=== PATIENT | male | born 1975 | race Caucasian/White ===

== ENCOUNTER → 2024-10-08 | Outpatient (CLI) | payer OTHER ==
[2024-10-08 10:09] LABS: Partial Thromboplastin Time 23.7 sec (22.0-30.0); Prothrombin Time 10.9 sec (10.0-12.5)
[2024-10-08 15:19] LABS: HCT 45.5 % (39.6-50.0); HGB 15.3 g/dL (13.0-17.0); MCH 31.9 pg (27.0-32.0); MCHC 33.6 g/dL (32.0-37.0); MCV 94.8 FL (80.0-97.0); Mean Platelet Volume 11.4 FL (9.5-12.2); NRBC Per 100 WBC 0 X 10*3/uL (0.00-0.01); Platelet Count 165 X 10*3/uL (140-440); WBC 6.49 X 10*3/uL (4.50-10.00)
[2024-10-08 17:02] LABS: ALT 62 U/L (10-49); AST 56 U/L (14-35); Albumin 4.4 g/dL (3.8-4.9); Albumin/Globulin Ratio 1.91 Ratio (1.60-3.17); Alkaline Phosphatase 96 U/L (41-126); BUN/Creat Ratio 14.75 Ratio (12.00-20.00); Blood Urea Nitrogen 11.8 mg/dL (9.0-27.0); Carbon Dioxide 24.3 mmol/L (21.6-31.8); Chloride 104 mmol/L (96-109); Globulin 2.3 g/dL (1.6-3.3); Glucose 113 mg/dL (70-110); Potassium 4.1 mmol/L (3.5-5.5); Sodium 139 mmol/L (135-145); Total Bilirubin 0.8 mg/dL (0.3-1.2); Total Protein 6.7 g/dL (6.2-8.2)
== END | disposition home or self-care (01) ==
LOC: LABPAT 09:03
PROVIDERS: ATTEND Orthopaedic Surgery
DX: Z01.818 Encounter for other preprocedural examination (principal); Z22.322 Carrier or suspected carrier of Methicillin resistant Staphylococcus aureus; M16.12 Unilateral primary osteoarthritis, left hip
CPT/HCPCS: 80053; 85027; 85610; 85730; 86850; 86900; 86901; 87070; 93005

== ENCOUNTER 2024-11-05 05:37 | Day surgery (SDC) | payer OTHER ==
[2024-10-31 10:19] VITALS: BMI 30.5
[~2024-11-05 05:37] MED LIST: TRANEXAMIC 1,000 MG/100ML-NACL 1,000 MG in SALINE 1 100ML.BAG IVPB PRN
[2024-11-05] MEDS: IV FLUID CONTINUATION 1,000 ML IV ONE (05:50)
[2024-11-05] MEDS: LACTATED RINGERS 1,000 ML IV SCH (06:17)
[2024-11-05] MEDS: DEXAMETHASONE SOD PHOSPHATE 4 MG/ML 1 ML VIAL IV ONE (06:23)
[2024-11-05] MEDS: ONDANSETRON 4 MG/2 ML VIAL IVP ONE (06:23)
[2024-11-05] MEDS: ACETAMINOPHEN TAB 500 MG TAB PO PRN (06:24)
[2024-11-05] MEDS: MELOXICAM 7.5 MG TAB PO PRN (06:24)
[2024-11-05] MEDS: GABAPENTIN 300 MG CAP PO PRN (06:24)
[2024-11-05] MEDS: fentaNYL (PF) 50 MCG/ML 2 ML AMP IVP ONE (06:39)
[2024-11-05] MEDS: MIDAZOLAM 2 MG/2 ML VIAL IV ONE (06:39)
[2024-11-05] MEDS ORDERED: DEXAMETHASONE SOD PHOSPHATE 4 MG/ML 1 ML VIAL ONE (06:54)
[2024-11-05] MEDS ORDERED: ROCURONIUM 10 MG/ML (5 ML VIAL) IV ONE (06:54)
[2024-11-05] MEDS ORDERED: fentaNYL (PF) 50 MCG/ML 2 ML AMP ONE (06:54)
[2024-11-05] MEDS ORDERED: ROPIVACAINE 5 MG/ML 30 ML VIAL ONE (06:54)
[2024-11-05] MEDS ORDERED: GLYCOPYRROLATE 0.2 MG/ML 2 ML VIAL ONE (06:54)
[2024-11-05] MEDS ORDERED: PROPOFOL 10 MG/ML 20 ML VIAL IV ONE (06:54)
[2024-11-05] MEDS ORDERED: NEOSTIGMINE 1 MG/ML 10 ML VIAL ONE (06:54)
[2024-11-05] MEDS ORDERED: HYDROmorphone (PF) 1 MG/ML ONE (06:54)
[2024-11-05] MEDS ORDERED: TRANEXAMIC 1,000 MG/100ML-NACL PREMIX BAG ONE (06:54)
[2024-11-05] MEDS ORDERED: LIDOCAINE 1% INJ 10MG/ML (20 ML MDV) ONE (06:54)
[2024-11-05] MEDS ORDERED: SUCCINYLCHOLINE CHLORIDE 200 MG/10 ML VIAL IV ONE (06:54)
[2024-11-05] MEDS: ceFAZolin 1,000 MG in SODIUM CHLORIDE 0.9% 1,000 ML IRRIGATION ONE (06:59)
[2024-11-05] MEDS: ROPIVACAINE 5 MG/ML 30 ML VIAL MISCELLANE ONE ×2 (07:28→08:08)
--- NOTE | 2024-11-05 07:51 | P.ANPRN ---
Procedure Note - Anesthesia - Nerve Block Performed Left Sam Single Time Out Performed: Yes Date of Procedure: 11/05/24 Procedure Start Time: 06:38 Procedure Stop Time: 06:46 Location of Patient: PreOp Indication: Acute Post-Operative Pain, Requested by Surgeon Sedation Type: Sedate with meaningful contact maintained Preparation: Sterile Prep Position: Supine Needle Types: Pajunk Needle Gauge: 21 Ultrasound used to visualize needle placement: Yes Ultrasound used to observe medication spread: Yes Injectate: 0.5% Ropivacaine (see comment for volume) (20 ml + 10 ml NS + 4 mg Dexamethasone) Blood Aspirated: No Pain Paresthesia on Injection Noted: No Resistance on Injection: Normal Image Stored and Saved: Yes Events: Uneventful and Well Tolerated
--- NOTE | 2024-11-05 08:11 | P.OP ---
Date of Procedure: 11/05/24 Preoperative Diagnosis: Severe osteoarthritis left hip Postoperative Diagnosis: Severe osteoarthritis left hip Procedure(s) Performed: Left total hip arthroplasty with a direct anterior approach Implants: [employer] Polarstem standard size 3 with a collar [employer] R3, 3 hole hemispherical acetabular shell, 56 mm [employer] Reflection 6.5 mm cancellus screws, 20 mm, 25 mm [employer] R3, XLPE 20 acetabular liner [employer] Oxinium femoral head 36 mm, +0 All components were press-fit. The articulation is Oxinium on polyethylene. Anesthesia: GETA Surgeon: Mak Suarez [employer] Manager #1: Rosa Contreras Estimated Blood Loss (ml): 400 Pathology: none sent Condition: stable Disposition: PACU Indications for Procedure: After failure of conservative treatment we discussed the surgical and nonsu rgical treatment options at length. Patient wishes to proceed with a total hip arthroplasty with a direct anterior approach. Complications specific to this procedure were discussed at length, including but not limited to infection, leg length discrepancy, dislocation, nerve injury, and fracture. Covid-19 was also discussed at length with the patient, and they are aware of the current policies and procedures. The patient was given the option of delaying surgery, but they elect to proceed knowing these risks. Patient is aware of all these complications and informed consent was obtained Operative Findings: The operative findings are consistent with severe osteoarthritis of the left hip Description of Procedure: The patient was seen and evaluated in the preoperative area and the consent was reviewed. The operative site was marked with a skin marker. The patient verified the procedure and operative site. A BRITTANI block was placed by anesthesia in the preoperative area. The patient was then brought to the operating room and given preoperative antibiotics intravenously. 1 g of Tranexamic acid was also given intravenously. A general anesthetic was administered by the anesthesia department. The patient was then placed on the [place] table with the bony prominences well-padded. The hip area was then prepped with a ChloraPrep solution and draped in the usual sterile fashion. A universal timeout was then performed, which confirmed the patient's name, surgical site, ALLERGIES, and procedure being performed on the consent. Next the incision site was located at 1 cm distal and 4 cm lateral to the anterior superior iliac spine. The skin and subcutaneous tissues were sharply incised. Incision was carefully dissected down to the fascia overlying the tensor fascia omar muscle. This fascia was then incised in line with the muscle fibers. Care was taken to stay laterally in order to avoid injuring the lateral femoral cutaneous nerve. Next, using blunt finger dissection, the tensor fascia omar muscle was dissected off its investing fascia. The muscle was then carefully retracted laterally with a cobra retractor over the lateral neck of the femur. Next, the circumflex vessels were identified and cauterized using the Aquamantis device. The anterior hip capsule was then exposed. The capsule was then opened and an inverted T fashion. The retractors were then placed intracapsularly. The retractors were maintained intracapsular throughout the procedure. The proximal femur was then visualized. Fluoroscopic x-rays were then taken in order to evaluate the preoperative leg lengths. A small amount of traction was placed on the leg. The femoral neck was then osteotomized at the appropriate level above the lesser trochanter. A small wedge of bone was then removed from the remaining femoral head. Next, using a corkscrew the femoral head was removed from the acetabulum. On gross visual inspection, the femoral head had complete loss of articular cartilage and multiple periarticular osteophytes. The femoral head was then measured. Attention was then turned to the acetabulum. The acetabulum was exposed and any remaining labrum was excised. Sequential reaming of the acetabulum was performed using fluoroscopic guidance until there was a good bed of bleeding cancellus bone. When the appropriate size was reached, a trial was then placed. The position and fit of the trial was checked with fluoroscopy. The trial was then removed. Then, using fluoroscopic guidance, the final implant was impacted at 20 of anteversion and 40 of abduction, and fully seated in the acetabulum. 2 screws were then placed in the acetabulum. Again fluoroscopy was used to check position of the screws. Next, the liner was then impacted, with a 20 elevated liner located in the anterior superior quadrant. Component locking was confirmed. Attention was then directed to the femur. With the aid of the [place] table, the femur was externally rotated to approximately 130, extended, and adducted under the opposite leg. A side hook was then placed under the proximal femur, and the side hook elevator was used to elevate the proximal femur while releasing the capsule. Retractors were then placed. A capsular release was performed, as well as a release of the conjoined tendon, which afforded excellent v isualization of the proximal femur. Next, a box osteotome was used to lateralize the proximal femur. A farm hand was then used to locate the femoral canal. Sequential broaching was then performed with appropriate size which afforded excellent fixation in the proximal femur. A trial was then placed with appropriate head and neck, and the hip was gently reduced with the aid of the [place] table. Fluoroscopy was then used to check position of the components, as well as to evaluate the leg lengths and offset. The leg lengths and offset were measured as closely as possible to ensure stability of the hip. The hip was then gently dislocated and the trials were then removed. Final implants were then impacted and the hip was again reduced. Final fluoroscopic x-rays confirmed that the components were in anatomic position. The leg lengths and offset were measured and were found to coincide with the trial measurements. The hip was also taken through range of motion, and found to be stable. The hip was then copiously irrigated with antibiotic solution with pulsatile lavage. The hip was then irrigated with Irrisept solution. The soft tissues were then injected with a ropivacaine solution. A second dose of 1 g of Tranexamic acid was also given intravenously. The fascia was then closed with 2-0 strata fix suture. The subcutaneous tissue was closed with 3-0 Vicryl. The subcuticular tissue was closed with 3-0 moncryl suture. The skin was then closed with Exofin skin glue. After the glue and dried, and Optifoam silver impregnated dressing was applied. The patient was then transferred to the recovery room in stable condition. The assistant manager of operations [employer] was required due to the complexity of surgery, and the need for skilled surgical first assistant for positioning, draping, exposure, retraction, and closure of the wound.
[2024-11-05] MEDS: LACTATED RINGERS 1,000 ML IV ONE (08:26)
[2024-11-05] MEDS ORDERED: HYDROmorphone 1 MG/ML 1 ML SYRINGE IVP PRN (08:39)
[2024-11-05] MEDS ORDERED: NALOXONE 0.4 MG/ML 1 ML VIAL IV PRN (08:39)
[2024-11-05] MEDS ORDERED: HYDROmorphone 0.5 MG/0.5 ML SYRINGE IVP PRN ×2 (08:39)
[2024-11-05] MEDS ORDERED: ONDANSETRON 4 MG/2 ML VIAL IVP PRN (08:39)
[2024-11-05] MEDS ORDERED: HYDROcodone/APAP 7.5-325MG 1 EACH TAB PO PRN (08:41)
[2024-11-05 08:43] VITALS: TEMP 98.6
[2024-11-05] MEDS ORDERED: SODIUM CHLORIDE 0.9% 1,000 ML IV SCH (08:45)
[2024-11-05] MEDS ORDERED: KETOROLAC 15 MG/ML 1 ML VIAL IVP PRN (08:46)
--- NOTE | 2024-11-05 08:47 | FL ---
Fluoroscopy INDICATION: Pain FINDINGS: Fluoroscopy time: 22.7 seconds. Total dose area product (DAP) in uGy*m?, mGy*cm? (or similar): 1.4988 Images obtained: 0. IMPRESSION: 1. Documentation of fluoroscopy. [facility], , 11/05/2024 8:45 AM
--- NOTE | 2024-11-05 09:00 | XR ---
Fluoroscopy INDICATION: Pain FINDINGS: Fluoroscopy time: 22.7 seconds. Total dose area product (DAP) in uGy*m?, mGy*cm? (or similar): 1.4988 Images obtained: 3. Images document left hip prosthesis placement IMPRESSION: 1. Documentation of fluoroscopy. [facility], , 11/05/2024 8:57 AM
[2024-11-05] MEDS: HYDROmorphone 0.5 MG/0.5 ML SYRINGE IVP PRN (09:05)
--- NOTE | 2024-11-05 09:08 | XR ---
EXAMINATION TYPE: XR Hip Limited LT DATE OF EXAM: 11/05/2024 COMPARISON: None HISTORY: Post hip prosthesis placement. TECHNIQUE: AP view of hip. SIDE IMAGED: Left FINDINGS: There has been placement of a hip prothesis. No acute fractures are evident. Post surgica l soft tissue changes are present. IMPRESSION: 1. No acute fracture post hip prothesis placement. [facility], , 11/05/2024 9:05 AM
[2024-11-05] MEDS: HYDROcodone/APAP 7.5-325MG 1 EACH TAB PO PRN (09:45)
[2024-11-05 11:42] VITALS: BP 110/68; PULSE 75; RESP 14
== END 2024-11-05 12:41 | disposition home health service (06) ==
LOC: OR 05:37
PROVIDERS: ATTEND Orthopaedic Surgery
DX: M16.12 Unilateral primary osteoarthritis, left hip (principal); G89.18 Other acute postprocedural pain; E66.09 Other obesity due to excess calories; Z68.30 Body mass index [BMI] 30.0-30.9, adult; F17.290 Nicotine dependence, other tobacco product, uncomplicated
CPT/HCPCS: 27130; 64999; 97161; 86900; 86901; 86850; 73501; C1776; J2250; J0330; J1100; J2710; J0690 ×2; J2405; J2003; J3010; J1171 ×2; J2795; J2704; J1596

== ENCOUNTER 2024-12-31 07:29 | Day surgery (SDC) | payer OTHER ==
[~2024-12-31 07:29] MED LIST changes: +HYDROmorphone 0.5 MG/0.5 ML SYRINGE IVP PRN; +LIDOCAINE 1% (10MG/ML) FOR IV START INTRADERMA PRN; +Pre Op ABX Message 1 EACH MISC MISCELLANE ONE; -TRANEXAMIC 1,000 MG/100ML-NACL 1,000 MG in SALINE 1 100ML.BAG IVPB PRN; +fentaNYL (PF) 50 MCG/ML 2 ML AMP IV PRN
[2024-12-31] MEDS: LACTATED RINGERS 1,000 ML IV SCH (08:35)
[2024-12-31] MEDS: ONDANSETRON 4 MG/2 ML VIAL IVP ONE (08:35)
[2024-12-31] MEDS: DEXAMETHASONE SOD PHOSPHATE 4 MG/ML 1 ML VIAL IV ONE (08:35)
[2024-12-31] MEDS: LACTATED RINGERS 1,000 ML IV ONE (08:36)
[2024-12-31] MEDS ORDERED: KETOROLAC 15 MG/ML 1 ML VIAL ONE (09:04)
[2024-12-31] MEDS ORDERED: fentaNYL (PF) 50 MCG/ML 2 ML AMP ONE (09:04)
[2024-12-31] MEDS ORDERED: PROPOFOL 10 MG/ML 20 ML VIAL IV ONE (09:04)
[2024-12-31] MEDS ORDERED: LIDOCAINE 1% INJ 10MG/ML (20 ML MDV) ONE (09:04)
[2024-12-31] MEDS ORDERED: MIDAZOLAM 2 MG/2 ML VIAL ONE (09:04)
[2024-12-31] MEDS: LIDOCAINE 1%-EPI 1:100,000 20 ML VIAL SQ ONE ×2 (09:24→09:33)
[2024-12-31 09:49] VITALS: TEMP 96.8
--- NOTE | 2024-12-31 10:06 | P.OP ---
Date of Procedure: 12/31/24 Preoperative Diagnosis: Right lower quadrant lipoma Postoperative Diagnosis: Right lower quadrant lipoma Procedure(s) Performed: Excision of right lower quadrant lipoma 8 cm Anesthesia: HARRIS Surgeon: Jared Cervantes Pathology: other (Lipoma) Condition: stable Disposition: PACU Description of Procedure: The patient was placed on the operative table in the supine position. He received general anesthesia. The lipoma was prepped and draped in sterile fashion. Skin incision was made over the lipoma. And then using blunt and sharp dissection the lipoma was dissected free. The lipoma measured approximately 8 cm diameter. Electrocautery was used for hemostasis. The skin was closed interrupted 3-0 Monocryl suture. Dermabond was applied. Patient tolerated the procedure well. He was sent to recovery room in stable condition.
[2024-12-31 10:34] VITALS: RESP 18
[2024-12-31 10:59] VITALS: BP 109/67; PULSE 69
== END 2024-12-31 11:13 | disposition home or self-care (01) ==
LOC: OR 07:29
PROVIDERS: ATTEND Surgery
DX: D17.23 Benign lipomatous neoplasm of skin and subcutaneous tissue of right leg (principal); M19.90 Unspecified osteoarthritis, unspecified site; F17.210 Nicotine dependence, cigarettes, uncomplicated
CPT/HCPCS: 27043; 88304; J2250; J1100; J2405; J2003; J3010; J1885; J2704

== ENCOUNTER 2025-01-02 07:43 | Day surgery (SDC) | payer OTHER ==
[~2025-01-02 07:43] MED LIST changes: -HYDROmorphone 0.5 MG/0.5 ML SYRINGE IVP PRN; -Pre Op ABX Message 1 EACH MISC MISCELLANE ONE; -fentaNYL (PF) 50 MCG/ML 2 ML AMP IV PRN
[2025-01-02 08:25] VITALS: RESP 16; TEMP 97.2
[2025-01-02] MEDS: LACTATED RINGERS 1,000 ML IV SCH (08:34)
[2025-01-02] MEDS: IV FLUID CONTINUATION 1,000 ML IV ONE (08:35)
[2025-01-02] MEDS ORDERED: LIDOCAINE 1% INJ 10MG/ML (20 ML MDV) ONE (09:33)
[2025-01-02] MEDS ORDERED: PROPOFOL 10 MG/ML 20 ML VIAL IV ONE (09:33)
--- NOTE | 2025-01-02 09:40 | P.GSHP ---
History of Present Illness H&P Date: 01/02/25 Chief Complaint: Screening colonoscopy Is a 49-year-old male presents today for screening colonoscopy. Patient denies any significant GI complaints. Past Medical History Past Medical History: Osteoarthritis (OA) History of Any Multi-Drug Resistant Organisms: None Reported Past Surgical History: Orthopedic Surgery Additional Past Surgical History / Comment(s): LT ELBOW SX Past Anesthesia/Blood Transfusion Reactions: No Reported Reaction Smoking Status: Former smoker - Past Family History Mother Family Medical History: No Reported History Medications and Allergies Home Medications Medication Instructions Recorded Confirmed Type No Known Home Medications 12/24/24 01/02/25 History Allergies Allergy/AdvReac Type Severity Reaction Status Date / Time No Known Allergies Allergy Verified 01/02/25 08:25 Surgical - Exam Vital Signs Temp Pulse Resp BP Pulse Ox 97.2 F L 71 16 118/71 94 L 01/02/25 08:23 01/02/25 08:23 01/02/25 08:23 01/02/25 08:23 01/02/25 08:23 - General well developed, well nourished, no distress - Eyes PERRL - ENT normal pinna - Neck no masses - Respiratory normal expansion - Cardiovascular Rhythm: regular - Abdomen Abdomen: soft, non tender Assessment and Plan Plan: Will perform screening colonoscopy
--- NOTE | 2025-01-02 09:56 | P.OP ---
Date of Procedure: 01/02/25 Preoperative Diagnosis: Screening colonoscopy Postoperative Diagnosis: Normal colon Procedure(s) Performed: Colonoscopy Anesthesia: MAC Surgeon: Jared Cervantes Pathology: none sent Condition: stable Disposition: PACU Description of Procedure: PROCEDURE: The patient was placed on the endoscopy table in the lateral position. Digital rectal examination was performed which revealed no abnormalities. The prostate was symmetrical without nodules. Flexible colonoscope was then placed in the patient's anus and passed throughout the entire colon. The ileocecal valve was visualized. The cecum, ascending, transverse, descending and sigmoid colon were normal. The rectum was normal as well. There were no masses, polyps or diverticula noted in the entire colon. SUMMARY OF FINDINGS: Normal colonoscopy.
[2025-01-02 10:15] VITALS: BP 111/76; PULSE 76
== END 2025-01-02 10:35 | disposition home or self-care (01) ==
LOC: ORWHC2ENDO 07:43
PROVIDERS: ATTEND Surgery
DX: Z12.11 Encounter for screening for malignant neoplasm of colon (principal); M19.90 Unspecified osteoarthritis, unspecified site; Z87.891 Personal history of nicotine dependence
CPT/HCPCS: 45378; J2003; J2704